=== PATIENT | male | born 2000 | race Asian ===

== ENCOUNTER → 2024-11-12 | Outpatient (CLI) | payer MEDICAID ==
--- NOTE | 2024-11-12 12:36 | RADIOLOGY REPORT ---
CLINICAL HISTORY: Sprain of anterior cruciate ligament of left knee, initial encounter. Left knee nayla n. History of ACL reconstruction. COMPARISON: None TECHNIQUE: Multisequence multiplanar MRI images of the left knee were obtained without contrast. FINDINGS: Cruciate ligaments: Postsurgical changes of ACL reconstruction. The ACL graft is intact. Focal area of arthrofibrosis along the anterior aspect of the ACL graft measures up to 1.2 cm in AP dimension, 0 .8 cm in craniocaudal dimension, and 1.0 cm in transverse dimension. There also appears to be some in homogeneous signal extending posterior to the ACL graft and in between the ACL and PCL, possibly cont iguous with the area of anterior arthrofibrosis, measuring up to 1.3 cm in greatest dimension. Femora l tibial tunnels of the ACL reconstruction appear unremarkable. PCL is intact. Extensor mechanism: Quadriceps mechanism and patellar tendon are intact. Collateral ligaments: Medial and lateral collateral ligaments are intact and otherwise unremarkable. Menisci: No significant degeneration. No evidence of meniscal tear. Cartilage: No focal chondral defect or significant chondromalacia. Bones: There is mild T2 hyperintense and T1 hypointense signal of the anterior aspect of the patella adjacent to the anterior cortex, possibly reactive/inflammatory marrow signal changes or stress relat ed changes, with no adjacent soft tissue edema no evidence of fracture. Joint fluid: No significant joint effusion. No synovitis or loose bodies. Other: No other significant findings. IMPRESSION: 1. Postsurgical changes of ACL reconstruction with prominent arthrofibrosis in the intercondylar ramez on adjacent to the ACL graft. 2. Nonspecific mild marrow edema in the anterior aspect of the patella adjacent to the anterior elva x, possibly stress related changes or reactive/ inflammatory marrow signal changes. No associated fra cture. No adjacent soft tissue abnormality identified.
== END | disposition home or self-care (01) ==
LOC: MRI02 08:30
PROVIDERS: ATTEND Orthopaedic Surgery
DX: S83.512A Sprain of anterior cruciate ligament of left knee, initial encounter (principal); S83.242A Other tear of medial meniscus, current injury, left knee, initial encounter; S43.012A Anterior subluxation of left humerus, initial encounter; Z98.890 Other specified postprocedural states; X58.XXXA Exposure to other specified factors, initial encounter; Y93.89 Activity, other specified; Y92.89 Other specified places as the place of occurrence of the external cause; Y99.8 Other external cause status
CPT/HCPCS: 73721